=== PATIENT | male | born 1965 | race Caucasian/White ===

== ENCOUNTER 2016-12-05 21:18 | Emergency (ER) | payer SELFPAY ==
[2016-12-05 23:58] VITALS: BP 123/78
== END 2016-12-05 23:58 | disposition home or self-care (01) ==
LOC: ED 21:18
DX: S43.004A Unspecified dislocation of right shoulder joint, initial encounter (principal); X58.XXXA Exposure to other specified factors, initial encounter; Y93.89 Activity, other specified; Y99.8 Other external cause status; Y92.89 Other specified places as the place of occurrence of the external cause
CPT/HCPCS: J1885; J2704; Q0092

== ENCOUNTER 2019-12-24 14:48 | Emergency (ER) | payer SELFPAY ==
[~2019-12-24] VITALS: Ht 175.3 cm; Wt 90.7 kg
[2019-12-24 14:50] VITALS: Ht 175.3 cm; Wt 90.7 kg
[2019-12-24 16:34] LABS: BASOPHIL % 0.3 % (0-2); PLATELET COUNT 166 x10^3mcL (130-400); RED CELL DISTRIBUTION WIDTH 13.6 % (11.5-14.5)
[2019-12-24 16:57] LABS: CALCIUM 8.7 mg/dL (8.5-10.1); CARBON DIOXIDE 25.8 mmol/L (21-32); CHLORIDE SERUM 106 mmol/L (98-107); CREATININE SERUM 0.8 mg/dL (0.7-1.3); GFR1 > 60 mL/min; GLUCOSE SERUM 95 mg/dL (74-106); POTASSIUM SERUM 4.1 mmol/L (3.5-5.1); SODIUM SERUM 142 mmol/L (136-145)
[2019-12-24 17:07] VITALS: BP 135/89
== END 2019-12-24 17:07 | disposition short-term general hospital (02) ==
LOC: ED 14:48
PROVIDERS: Emergency Medicine
DX: S22.32XA Fracture of one rib, left side, initial encounter for closed fracture (principal); S32.038A Other fracture of third lumbar vertebra, initial encounter for closed fracture; S06.300A Unspecified focal traumatic brain injury without loss of consciousness, initial encounter; X58.XXXA Exposure to other specified factors, initial encounter; Y93.89 Activity, other specified; Y92.89 Other specified places as the place of occurrence of the external cause; Y99.8 Other external cause status
CPT/HCPCS: 82962; 90715; J1100; J1953; J3010; J7030; Q0092